=== PATIENT | male | born 1935 | race Caucasian/White ===

== ENCOUNTER 2022-11-15 06:59 | Inpatient (IN) ==
[2022-11-15 07:50] LABS: Mucus,Urine Occasional /LPF (Occasional); Urine Appearance Clear (Clear); Urine Color Yellow (Yellow); Urine pH 6.5 (4.5-8.0)
[2022-11-15 07:51] LABS: Bilirubin,Urine Negative (Negative); Blood, Urine Trace mg/dL (Negative); Glucose,Urine (UA) Negative (Negative); Ketones,Urine Negative (Negative); Nitrite,Urine Negative (Negative); Protein,Urine Negative (Negative); Urine Urobilinogen 0.2 eU/dL (<2.0)
[2022-11-15 07:59] LABS: Basophils % 0.2 % (0.0-0.8); Eosinophils % 0.3 % (0.00-10.9); Hematocrit 37.3 VOL% (42.0-52.0); Immature Granulocytes % 0.4 %; Immature Granulocytes Absolute 0.04 #; Lymphocytes # 0.5 10*3/uL (1.4-4.0); Lymphocytes % 4.7 % (21.2-54.2); Mean Corpuscular HGB Conc 32.2 GM/DL (32-36); Mean Corpuscular Volume 93.3 FL (87-102); Mean Platelet Volume 10.7 FL (9.6-12.0); Monocytes # 0.8 10*3/uL (0.11-0.8); Monocytes % 7.2 % (1.7-12.7); Neutrophils % 87.2 % (38.7-73.9); Platelet Count 161 T/CUMM (130-400); Red Cell Distribution Width 13.7 % (9.3-17.3); White Blood Count 10.44 T/CUMM (4-12)
[2022-11-15] MEDS ORDERED: PIPERACILLIN/TAZOBACTAM 3,375 MG in SODIUM CHLORIDE 0.9% 100 ML IV STA (08:04)
[2022-11-15] MEDS ORDERED: ALBUTEROL/IPRATROPIUM 3 ML NEB RESP TX PRN (08:05)
[2022-11-15] MEDS ORDERED: ONDANSETRON 4 MG/2 ML VIAL IV PRN (08:05)
[2022-11-15] MEDS ORDERED: hydrALAZINE 20 MG/1 ML VIAL IV PRN (08:05)
[2022-11-15] MEDS ORDERED: PROMETHAZINE 25 MG/1 ML VIAL IM PRN (08:05)
[2022-11-15] MEDS ORDERED: guaiFENesin/DM ER 600-30 MG TABLET PO PRN (08:05)
[2022-11-15] MEDS ORDERED: MORPHINE 2 MG/1 ML SYRINGE IV PRN (08:05)
[2022-11-15] MEDS ORDERED: NICOTINE 21 MG/24 HR PATCH TRANSDERM PRN (08:05)
[2022-11-15] MEDS ORDERED: ZALEPLON 5 MG CAPSULE PO PRN (08:05)
[2022-11-15] MEDS ORDERED: diphenhydrAMINE CAP 25 MG CAPSULE PO PRN (08:05)
[2022-11-15 08:16] LABS: Albumin 3.9 G/DL (3.4-5.0); Bilirubin,Total 0.6 MG/DL (0.20-1.00); Calcium 9.3 MG/DL (8.5-10.1); Osmolality,Calculated 280.7 MOS/KG (273-304); Potassium 5.3 MMOL/L (3.5-5.1); Total Protein 7.4 G/DL (6.4-8.2)
[2022-11-15 08:21] LABS: Eosinophils 1 % (0-10); Lymphocytes 3 % (20-55); Platelet Estimate Adequate; Total Cells Counted 100
[2022-11-15] MEDS ORDERED: FUROSEMIDE 40 MG/4 ML VIAL IV STA (10:21)
[2022-11-15] MEDS: PANTOPRAZOLE 40 MG TABLET PO SCH (10:25)
[2022-11-15] MEDS: DOCUSATE SODIUM 100 MG CAPSULE PO SCH ×2 (10:25→20:52)
[2022-11-15] MEDS: HEPARIN 5,000 UNIT/1 ML VIAL SUBCUT SCH ×2 (10:51→20:55)
[2022-11-15] MEDS ORDERED: FUROSEMIDE 40 MG/4 ML VIAL IV ONE (14:06)
[2022-11-15] MEDS: carvediloL 6.25 MG TABLET PO SCH ×2 (15:30→20:51)
[2022-11-15] MEDS: INSULIN LISPRO 100 UNIT/ML SUBCUT SCH ×2 (15:33→20:52)
[2022-11-15] MEDS: ACETAMINOPHEN 325 MG TABLET PO PRN ×2 (15:35→20:52)
[2022-11-15] MEDS: ATORVASTATIN 40 MG TABLET PO SCH (20:52)
[2022-11-15] MEDS: TAMSULOSIN 0.4 MG CAPSULE PO SCH (20:52)
[2022-11-15] MEDS: MEMANTINE 10 MG TABLET PO SCH (20:52)
[2022-11-16 04:54] LABS: Basophils % 0.3 % (0.0-0.8); Hematocrit 34.7 VOL% (42.0-52.0); Hemoglobin 11.4 GM/DL (14.0-18.0); Immature Granulocytes % 0.3 %; Immature Granulocytes Absolute 0.02 #; Lymphocytes # 0.8 10*3/uL (1.4-4.0); Lymphocytes % 10.5 % (21.2-54.2); Mean Corpuscular HGB Conc 32.9 GM/DL (32-36); Mean Platelet Volume 10.6 FL (9.6-12.0); Monocytes # 0.9 10*3/uL (0.11-0.8); Monocytes % 12.5 % (1.7-12.7); Neutrophils % 76.4 % (38.7-73.9); Platelet Count 163 T/CUMM (130-400); Red Blood Count 3.73 MC/CUMM (3.8-5.5); Red Cell Distribution Width 14.1 % (9.3-17.3); White Blood Count 7.35 T/CUMM (4-12)
[2022-11-16 05:21] LABS: Calcium 9.2 MG/DL (8.5-10.1); Osmolality,Calculated 281.7 MOS/KG (273-304); Potassium 4.4 MMOL/L (3.5-5.1)
[2022-11-16] MEDS: INSULIN LISPRO 100 UNIT/ML SUBCUT SCH ×4 (08:09→21:35)
[2022-11-16] MEDS ORDERED: lisinopriL 10 MG TABLET PO SCH (09:00)
[2022-11-16] MEDS: carvediloL 6.25 MG TABLET PO SCH ×2 (09:58→21:34)
[2022-11-16] MEDS: SODIUM CHLORIDE 0.9% 1,000 ML IV SCH ×2 (09:58→23:49)
[2022-11-16] MEDS: ASPIRIN EC 81 MG TABLET PO SCH (09:58)
[2022-11-16] MEDS: DONEPEZIL 10 MG TABLET PO SCH (09:58)
[2022-11-16] MEDS: PANTOPRAZOLE 40 MG TABLET PO SCH (09:58)
[2022-11-16] MEDS: HEPARIN 5,000 UNIT/1 ML VIAL SUBCUT SCH ×2 (09:59→21:34)
[2022-11-16] MEDS: DOCUSATE SODIUM 100 MG CAPSULE PO SCH ×2 (09:59→21:34)
[2022-11-16] MEDS: TAMSULOSIN 0.4 MG CAPSULE PO SCH ×2 (09:59→21:34)
[2022-11-16] MEDS: MEMANTINE 10 MG TABLET PO SCH ×2 (10:03→21:35)
[2022-11-16] MEDS ORDERED: NITROGLYCERIN SL 0.4 MG TABLET SL PRN (10:31)
[2022-11-16] MEDS: ACETAMINOPHEN 325 MG TABLET PO PRN (21:34)
[2022-11-16] MEDS: ATORVASTATIN 40 MG TABLET PO SCH (21:35)
[2022-11-16] MEDS: levETIRAcetam 500 MG TABLET PO SCH (21:35)
[2022-11-17] MEDS: SODIUM CHLORIDE 0.9% 1,000 ML IV SCH ×2 (03:30→13:18)
[2022-11-17] MEDS: ACETAMINOPHEN 650 MG SUPP RECTAL PRN ×2 (05:15→09:49)
[2022-11-17 05:32] LABS: Basophils % 0.2 % (0.0-0.8); Hemoglobin 12.3 GM/DL (14.0-18.0); Immature Granulocytes % 0.4 %; Immature Granulocytes Absolute 0.05 #; Lymphocytes # 1.2 10*3/uL (1.4-4.0); Lymphocytes % 10.4 % (21.2-54.2); Mean Corpuscular HGB Conc 31.5 GM/DL (32-36); Mean Corpuscular Volume 95.4 FL (87-102); Mean Platelet Volume 10.4 FL (9.6-12.0); Monocytes # 0.9 10*3/uL (0.11-0.8); Monocytes % 7.6 % (1.7-12.7); Neutrophils % 81.4 % (38.7-73.9); Platelet Count 175 T/CUMM (130-400); Red Blood Count 4.09 MC/CUMM (3.8-5.5); Red Cell Distribution Width 14.4 % (9.3-17.3); White Blood Count 11.34 T/CUMM (4-12)
[2022-11-17 05:56] LABS: Calcium 8.9 MG/DL (8.5-10.1); Osmolality,Calculated 283.7 MOS/KG (273-304); Potassium 4.3 MMOL/L (3.5-5.1)
[2022-11-17 07:07] LABS: Risk Ratio 2.96; Thyroid Stimulating Hormone 0.672 uIU/ml (0.358-3.74); VLDL Cholesterol 43.8 MG/DL
[2022-11-17] MEDS: INSULIN LISPRO 100 UNIT/ML SUBCUT SCH ×4 (09:50→22:44)
[2022-11-17] MEDS: HEPARIN 5,000 UNIT/1 ML VIAL SUBCUT SCH ×2 (09:51→22:55)
[2022-11-17] MEDS: carvediloL 6.25 MG TABLET PO SCH ×2 (10:08→22:58)
[2022-11-17] MEDS: DOCUSATE SODIUM 100 MG CAPSULE PO SCH ×2 (10:08→23:02)
[2022-11-17] MEDS: DONEPEZIL 10 MG TABLET PO SCH (10:08)
[2022-11-17] MEDS: TAMSULOSIN 0.4 MG CAPSULE PO SCH ×2 (10:08→22:58)
[2022-11-17] MEDS: ASPIRIN EC 81 MG TABLET PO SCH (10:08)
[2022-11-17] MEDS: MEMANTINE 10 MG TABLET PO SCH ×2 (10:09→22:58)
[2022-11-17] MEDS: CHOLECALCIFEROL 1,000 UNIT TABLET PO SCH (10:09)
[2022-11-17] MEDS: ZINC SULFATE 220 MG CAPSULE PO SCH (10:09)
[2022-11-17] MEDS: levETIRAcetam 500 MG TABLET PO SCH (10:09)
[2022-11-17] MEDS: PANTOPRAZOLE 40 MG TABLET PO SCH (10:09)
[2022-11-17] MEDS ORDERED: KETOROLAC 30 MG/1 ML VIAL IV PRN (11:12)
[2022-11-17 12:53] LABS: PT Patient Result 10.9 SECS (10.1-12.1)
[2022-11-17] MEDS ORDERED: FUROSEMIDE 20 MG/2 ML VIAL IV ONE (14:00)
[2022-11-17] MEDS ORDERED: AZITHROMYCIN INJ 500 MG in SODIUM CHLORIDE 0.9% 250 ML IV ONE (17:00)
[2022-11-17] MEDS: cefTRIAXone 1,000 MG in SODIUM CHLORIDE 0.9% 100 ML IV SCH (19:07)
[2022-11-17] MEDS: DEXAMETHASONE 4 MG/1 ML VIAL IV SCH (19:07)
[2022-11-17] MEDS: ASCORBIC ACID 500 MG TABLET PO SCH (23:02)
[2022-11-17] MEDS: ATORVASTATIN 40 MG TABLET PO SCH (23:02)
[2022-11-18 05:40] LABS: Basophils % 0.1 % (0.0-0.8); Hematocrit 33.5 VOL% (42.0-52.0); Hemoglobin 10.8 GM/DL (14.0-18.0); Immature Granulocytes % 0.3 %; Immature Granulocytes Absolute 0.02 #; Lymphocytes # 0.9 10*3/uL (1.4-4.0); Lymphocytes % 11.9 % (21.2-54.2); Mean Corpuscular HGB Conc 32.2 GM/DL (32-36); Mean Corpuscular Volume 93.1 FL (87-102); Mean Platelet Volume 10.3 FL (9.6-12.0); Monocytes # 0.5 10*3/uL (0.11-0.8); Monocytes % 5.8 % (1.7-12.7); Neutrophils % 81.9 % (38.7-73.9); Platelet Count 158 T/CUMM (130-400); Red Cell Distribution Width 14.1 % (9.3-17.3); White Blood Count 7.79 T/CUMM (4-12)
[2022-11-18 05:58] LABS: Calcium 8.3 MG/DL (8.5-10.1); Potassium 4.4 MMOL/L (3.5-5.1)
[2022-11-18] MEDS: CHOLECALCIFEROL 1,000 UNIT TABLET PO SCH (09:25)
[2022-11-18] MEDS: AZITHROMYCIN 250 MG TABLET PO SCH (09:25)
[2022-11-18] MEDS: TAMSULOSIN 0.4 MG CAPSULE PO SCH ×2 (09:25→22:33)
[2022-11-18] MEDS: ASPIRIN EC 81 MG TABLET PO SCH (09:25)
[2022-11-18] MEDS: DOCUSATE SODIUM 100 MG CAPSULE PO SCH ×2 (09:25→22:32)
[2022-11-18] MEDS: DONEPEZIL 10 MG TABLET PO SCH (09:25)
[2022-11-18] MEDS: ZINC SULFATE 220 MG CAPSULE PO SCH (09:25)
[2022-11-18] MEDS: ASCORBIC ACID 500 MG TABLET PO SCH ×2 (09:25→22:33)
[2022-11-18] MEDS: MEMANTINE 10 MG TABLET PO SCH ×2 (09:25→22:33)
[2022-11-18] MEDS: DEXAMETHASONE 4 MG/1 ML VIAL IV SCH (09:26)
[2022-11-18] MEDS: carvediloL 6.25 MG TABLET PO SCH ×2 (09:26→22:33)
[2022-11-18] MEDS: PANTOPRAZOLE 40 MG TABLET PO SCH (09:26)
[2022-11-18] MEDS: INSULIN LISPRO 100 UNIT/ML SUBCUT SCH ×4 (09:27→22:33)
[2022-11-18] MEDS: HEPARIN 5,000 UNIT/1 ML VIAL SUBCUT SCH ×2 (09:27→22:33)
[2022-11-18] MEDS: cefTRIAXone 1,000 MG in SODIUM CHLORIDE 0.9% 100 ML IV SCH (17:42)
[2022-11-18] MEDS: ATORVASTATIN 40 MG TABLET PO SCH (22:33)
[2022-11-19] MEDS: SODIUM CHLORIDE 0.9% 1,000 ML IV SCH ×4 (04:01→11:01)
[2022-11-19 06:17] LABS: Hematocrit 32.8 VOL% (42.0-52.0); Hemoglobin 10.7 GM/DL (14.0-18.0); Immature Granulocytes % 0.2 %; Immature Granulocytes Absolute 0.02 #; Lymphocytes % 11.3 % (21.2-54.2); Mean Corpuscular HGB Conc 32.6 GM/DL (32-36); Mean Corpuscular Volume 92.9 FL (87-102); Mean Platelet Volume 10.8 FL (9.6-12.0); Monocytes # 0.6 10*3/uL (0.11-0.8); Monocytes % 6.4 % (1.7-12.7); Neutrophils % 82.1 % (38.7-73.9); Platelet Count 170 T/CUMM (130-400); Red Blood Count 3.53 MC/CUMM (3.8-5.5); Red Cell Distribution Width 13.8 % (9.3-17.3); White Blood Count 8.74 T/CUMM (4-12)
[2022-11-19 06:45] LABS: Calcium 8.4 MG/DL (8.5-10.1); Osmolality,Calculated 292.4 MOS/KG (273-304); Potassium 4.1 MMOL/L (3.5-5.1)
[2022-11-19] MEDS: INSULIN LISPRO 100 UNIT/ML SUBCUT SCH ×3 (10:40→17:18)
[2022-11-19] MEDS: DEXAMETHASONE 4 MG/1 ML VIAL IV SCH (10:41)
[2022-11-19] MEDS: ASPIRIN EC 81 MG TABLET PO SCH (10:41)
[2022-11-19] MEDS: DONEPEZIL 10 MG TABLET PO SCH (10:41)
[2022-11-19] MEDS: DOCUSATE SODIUM 100 MG CAPSULE PO SCH ×2 (10:41→22:10)
[2022-11-19] MEDS: MEMANTINE 10 MG TABLET PO SCH ×2 (10:42→22:10)
[2022-11-19] MEDS: ASCORBIC ACID 500 MG TABLET PO SCH ×2 (10:42→22:10)
[2022-11-19] MEDS: PANTOPRAZOLE 40 MG TABLET PO SCH (10:42)
[2022-11-19] MEDS: HEPARIN 5,000 UNIT/1 ML VIAL SUBCUT SCH ×2 (10:42→22:10)
[2022-11-19] MEDS: ZINC SULFATE 220 MG CAPSULE PO SCH (10:42)
[2022-11-19] MEDS: TAMSULOSIN 0.4 MG CAPSULE PO SCH ×2 (10:42→22:10)
[2022-11-19] MEDS: CHOLECALCIFEROL 1,000 UNIT TABLET PO SCH (10:42)
[2022-11-19] MEDS: AZITHROMYCIN 250 MG TABLET PO SCH (10:43)
[2022-11-19] MEDS: carvediloL 3.125 MG TABLET PO SCH ×2 (11:02→22:11)
[2022-11-19] MEDS: ZINC OXIDE PASTE 113 GM TUBE TOP SCH (17:29)
[2022-11-19] MEDS: cefTRIAXone 1,000 MG in SODIUM CHLORIDE 0.9% 100 ML IV SCH (17:44)
[2022-11-19] MEDS: ATORVASTATIN 40 MG TABLET PO SCH (22:10)
[2022-11-20] MEDS: INSULIN LISPRO 100 UNIT/ML SUBCUT SCH ×5 (00:01→22:21)
[2022-11-20] MEDS: SODIUM CHLORIDE 0.9% 1,000 ML IV SCH ×2 (01:52→22:23)
[2022-11-20] MEDS: ZINC OXIDE PASTE 113 GM TUBE TOP SCH ×3 (01:53→22:20)
[2022-11-20 06:12] LABS: Hemoglobin 10.2 GM/DL (14.0-18.0); Immature Granulocytes % 0.6 %; Immature Granulocytes Absolute 0.06 #; Lymphocytes % 10.3 % (21.2-54.2); Mean Corpuscular HGB Conc 31.9 GM/DL (32-36); Mean Corpuscular Volume 94.1 FL (87-102); Mean Platelet Volume 10.3 FL (9.6-12.0); Monocytes # 0.6 10*3/uL (0.11-0.8); Monocytes % 6.2 % (1.7-12.7); Neutrophils % 82.9 % (38.7-73.9); Platelet Count 162 T/CUMM (130-400); Red Cell Distribution Width 13.7 % (9.3-17.3); White Blood Count 9.58 T/CUMM (4-12)
[2022-11-20 06:28] LABS: Calcium 8.1 MG/DL (8.5-10.1); Osmolality,Calculated 291.3 MOS/KG (273-304); Potassium 4.2 MMOL/L (3.5-5.1)
[2022-11-20] MEDS: DEXAMETHASONE 4 MG/1 ML VIAL IV SCH (09:23)
[2022-11-20] MEDS: HEPARIN 5,000 UNIT/1 ML VIAL SUBCUT SCH ×2 (09:23→22:15)
[2022-11-20] MEDS: DOCUSATE SODIUM 100 MG CAPSULE PO SCH ×2 (09:24→22:14)
[2022-11-20] MEDS: PANTOPRAZOLE 40 MG TABLET PO SCH (09:24)
[2022-11-20] MEDS: AZITHROMYCIN 250 MG TABLET PO SCH (09:24)
[2022-11-20] MEDS: DONEPEZIL 10 MG TABLET PO SCH (09:24)
[2022-11-20] MEDS: CHOLECALCIFEROL 1,000 UNIT TABLET PO SCH (09:24)
[2022-11-20] MEDS: carvediloL 3.125 MG TABLET PO SCH ×2 (09:24→22:14)
[2022-11-20] MEDS: ZINC SULFATE 220 MG CAPSULE PO SCH (09:24)
[2022-11-20] MEDS: ASPIRIN EC 81 MG TABLET PO SCH (09:24)
[2022-11-20] MEDS: ASCORBIC ACID 500 MG TABLET PO SCH ×2 (09:24→22:14)
[2022-11-20] MEDS: TAMSULOSIN 0.4 MG CAPSULE PO SCH ×2 (09:24→22:14)
[2022-11-20] MEDS: MEMANTINE 10 MG TABLET PO SCH ×2 (09:24→22:14)
[2022-11-20] MEDS: cefTRIAXone 1,000 MG in SODIUM CHLORIDE 0.9% 100 ML IV SCH (16:49)
[2022-11-20] MEDS: ATORVASTATIN 40 MG TABLET PO SCH (22:14)
[2022-11-21 06:01] LABS: Hematocrit 31.6 VOL% (42.0-52.0); Hemoglobin 10.3 GM/DL (14.0-18.0); Immature Granulocytes % 1.4 %; Immature Granulocytes Absolute 0.13 #; Lymphocytes # 1.6 10*3/uL (1.4-4.0); Lymphocytes % 16.9 % (21.2-54.2); Mean Corpuscular HGB Conc 32.6 GM/DL (32-36); Mean Corpuscular Volume 93.2 FL (87-102); Mean Platelet Volume 10.9 FL (9.6-12.0); Monocytes # 0.7 10*3/uL (0.11-0.8); Monocytes % 7.5 % (1.7-12.7); Neutrophils % 74.2 % (38.7-73.9); Platelet Count 174 T/CUMM (130-400); Red Blood Count 3.39 MC/CUMM (3.8-5.5); Red Cell Distribution Width 13.5 % (9.3-17.3); White Blood Count 9.15 T/CUMM (4-12)
[2022-11-21 06:20] LABS: Calcium 8.3 MG/DL (8.5-10.1); Osmolality,Calculated 290.1 MOS/KG (273-304); Potassium 3.8 MMOL/L (3.5-5.1)
[2022-11-21] MEDS: INSULIN LISPRO 100 UNIT/ML SUBCUT SCH ×4 (09:15→20:15)
[2022-11-21] MEDS: TAMSULOSIN 0.4 MG CAPSULE PO SCH ×2 (09:20→20:15)
[2022-11-21] MEDS: ASPIRIN EC 81 MG TABLET PO SCH (09:20)
[2022-11-21] MEDS: ZINC OXIDE PASTE 113 GM TUBE TOP SCH ×2 (09:20→20:15)
[2022-11-21] MEDS: DONEPEZIL 10 MG TABLET PO SCH (09:20)
[2022-11-21] MEDS: DOCUSATE SODIUM 100 MG CAPSULE PO SCH ×2 (09:20→20:15)
[2022-11-21] MEDS: DEXAMETHASONE 4 MG/1 ML VIAL IV SCH (09:20)
[2022-11-21] MEDS: CHOLECALCIFEROL 1,000 UNIT TABLET PO SCH ×2 (09:21→09:42)
[2022-11-21] MEDS: MEMANTINE 10 MG TABLET PO SCH ×2 (09:21→20:15)
[2022-11-21] MEDS: PANTOPRAZOLE 40 MG TABLET PO SCH (09:21)
[2022-11-21] MEDS: ASCORBIC ACID 500 MG TABLET PO SCH ×2 (09:21→20:15)
[2022-11-21] MEDS: ZINC SULFATE 220 MG CAPSULE PO SCH (09:21)
[2022-11-21] MEDS: AZITHROMYCIN 250 MG TABLET PO SCH (09:22)
[2022-11-21] MEDS: HEPARIN 5,000 UNIT/1 ML VIAL SUBCUT SCH ×2 (09:22→20:15)
[2022-11-21] MEDS: levETIRAcetam 500 MG TABLET PO SCH ×2 (11:28→20:15)
[2022-11-21] MEDS: cefTRIAXone 1,000 MG in SODIUM CHLORIDE 0.9% 100 ML IV SCH (16:42)
[2022-11-21] MEDS: SODIUM CHLORIDE 0.9% 1,000 ML IV SCH (20:15)
[2022-11-21] MEDS: ATORVASTATIN 40 MG TABLET PO SCH (20:15)
[2022-11-22 07:02] LABS: Basophils % 0.1 % (0.0-0.8); Eosinophils % 0.3 % (0.00-10.9); Hemoglobin 9.9 GM/DL (14.0-18.0); Immature Granulocytes % 2.2 %; Lymphocytes % 21.4 % (21.2-54.2); Mean Corpuscular Volume 93.2 FL (87-102); Monocytes # 0.8 10*3/uL (0.11-0.8); Monocytes % 8.5 % (1.7-12.7); Neutrophils % 67.5 % (38.7-73.9); Platelet Count 179 T/CUMM (130-400); Red Blood Count 3.22 MC/CUMM (3.8-5.5); Red Cell Distribution Width 13.5 % (9.3-17.3)
[2022-11-22 07:27] LABS: Calcium 8.3 MG/DL (8.5-10.1); Osmolality,Calculated 288.8 MOS/KG (273-304); Potassium 3.7 MMOL/L (3.5-5.1)
[2022-11-22] MEDS: INSULIN LISPRO 100 UNIT/ML SUBCUT SCH ×4 (08:02→20:20)
[2022-11-22] MEDS: HEPARIN 5,000 UNIT/1 ML VIAL SUBCUT SCH ×2 (08:03→20:20)
[2022-11-22] MEDS: ZINC SULFATE 220 MG CAPSULE PO SCH (08:04)
[2022-11-22] MEDS: levETIRAcetam 500 MG TABLET PO SCH ×2 (08:04→20:20)
[2022-11-22] MEDS: ASCORBIC ACID 500 MG TABLET PO SCH ×2 (08:04→20:20)
[2022-11-22] MEDS: TAMSULOSIN 0.4 MG CAPSULE PO SCH ×2 (08:04→20:20)
[2022-11-22] MEDS: CHOLECALCIFEROL 1,000 UNIT TABLET PO SCH (08:04)
[2022-11-22] MEDS: DOCUSATE SODIUM 100 MG CAPSULE PO SCH ×2 (08:05→20:20)
[2022-11-22] MEDS: ASPIRIN EC 81 MG TABLET PO SCH (08:05)
[2022-11-22] MEDS: DONEPEZIL 10 MG TABLET PO SCH (08:05)
[2022-11-22] MEDS: MEMANTINE 10 MG TABLET PO SCH ×2 (08:05→20:20)
[2022-11-22] MEDS: PANTOPRAZOLE 40 MG TABLET PO SCH (08:05)
[2022-11-22] MEDS: DEXAMETHASONE 4 MG/1 ML VIAL IV SCH (08:09)
[2022-11-22] MEDS: ZINC OXIDE PASTE 113 GM TUBE TOP SCH ×2 (08:10→20:20)
[2022-11-22] MEDS: SODIUM CHLORIDE 0.9% 1,000 ML IV SCH (17:23)
[2022-11-22] MEDS: cefTRIAXone 1,000 MG in SODIUM CHLORIDE 0.9% 100 ML IV SCH (17:25)
[2022-11-22] MEDS: ATORVASTATIN 40 MG TABLET PO SCH (20:20)
[2022-11-23 05:34] LABS: Basophils % 0.1 % (0.0-0.8); Eosinophils # 0.1 10*3/uL (0.0-0.87); Eosinophils % 0.8 % (0.00-10.9); Hematocrit 32.6 VOL% (42.0-52.0); Hemoglobin 10.6 GM/DL (14.0-18.0); Immature Granulocytes % 3.6 %; Immature Granulocytes Absolute 0.36 #; Lymphocytes # 2.2 10*3/uL (1.4-4.0); Lymphocytes % 22.7 % (21.2-54.2); Mean Corpuscular HGB Conc 32.5 GM/DL (32-36); Mean Corpuscular Volume 92.4 FL (87-102); Mean Platelet Volume 10.8 FL (9.6-12.0); Monocytes # 0.8 10*3/uL (0.11-0.8); Neutrophils % 64.8 % (38.7-73.9); Platelet Count 196 T/CUMM (130-400); Red Blood Count 3.53 MC/CUMM (3.8-5.5); Red Cell Distribution Width 13.5 % (9.3-17.3); White Blood Count 9.88 T/CUMM (4-12)
[2022-11-23 06:01] LABS: Calcium 8.1 MG/DL (8.5-10.1); Osmolality,Calculated 287.8 MOS/KG (273-304); Potassium 3.6 MMOL/L (3.5-5.1)
[2022-11-23] MEDS: INSULIN LISPRO 100 UNIT/ML SUBCUT SCH ×4 (08:45→22:17)
[2022-11-23] MEDS: DOCUSATE SODIUM 100 MG CAPSULE PO SCH ×2 (08:47→22:06)
[2022-11-23] MEDS: ASPIRIN EC 81 MG TABLET PO SCH (08:47)
[2022-11-23] MEDS: DEXAMETHASONE 4 MG/1 ML VIAL IV SCH (08:47)
[2022-11-23] MEDS: DONEPEZIL 10 MG TABLET PO SCH (08:47)
[2022-11-23] MEDS: HEPARIN 5,000 UNIT/1 ML VIAL SUBCUT SCH ×2 (08:48→22:09)
[2022-11-23] MEDS: MEMANTINE 10 MG TABLET PO SCH ×2 (08:48→22:07)
[2022-11-23] MEDS: levETIRAcetam 500 MG TABLET PO SCH ×2 (08:48→22:06)
[2022-11-23] MEDS: ZINC OXIDE PASTE 113 GM TUBE TOP SCH ×2 (08:48→22:08)
[2022-11-23] MEDS: TAMSULOSIN 0.4 MG CAPSULE PO SCH ×2 (08:48→22:07)
[2022-11-23] MEDS: PANTOPRAZOLE 40 MG TABLET PO SCH (08:48)
[2022-11-23] MEDS: ASCORBIC ACID 500 MG TABLET PO SCH ×2 (08:49→22:07)
[2022-11-23] MEDS: ZINC SULFATE 220 MG CAPSULE PO SCH (08:49)
[2022-11-23] MEDS: CHOLECALCIFEROL 1,000 UNIT TABLET PO SCH (08:49)
[2022-11-23] MEDS ORDERED: ceFAZolin 1,000 MG VIAL IRRIG ONE (09:00)
[2022-11-23] MEDS ORDERED: LIDOCAINE 1%/EPI INJ 20 ML VIAL ONE (09:05)
[2022-11-23] MEDS ORDERED: ceFAZolin 1,000 MG VIAL ONE ×2 (09:05→09:08)
[2022-11-23] MEDS ORDERED: HEPARIN/NACL 0.9% 2 UNITS/ML 1,000 UNIT/500 ML BAG IV ONE (09:05)
[2022-11-23] MEDS ORDERED: fentaNYL 100 MCG/2 ML VIAL ONE (10:13)
[2022-11-23] MEDS ORDERED: MIDAZOLAM 2 MG/2 ML VIAL ONE (10:13)
[2022-11-23] MEDS ORDERED: diphenhydrAMINE 50 MG/1 ML VIAL ONE (10:29)
[2022-11-23] MEDS ORDERED: TISSUE ADHESIVE 1 EACH APPLICATOR TOP ONE (10:59)
[2022-11-23] MEDS: SODIUM CHLORIDE 0.9% 1,000 ML IV SCH (16:56)
[2022-11-23] MEDS: cefTRIAXone 1,000 MG in SODIUM CHLORIDE 0.9% 100 ML IV SCH (16:58)
[2022-11-23] MEDS: ATORVASTATIN 40 MG TABLET PO SCH (22:08)
[2022-11-24 05:51] LABS: Basophils % 0.2 % (0.0-0.8); Eosinophils # 0.1 10*3/uL (0.0-0.87); Eosinophils % 0.6 % (0.00-10.9); Hematocrit 35.4 VOL% (42.0-52.0); Hemoglobin 11.5 GM/DL (14.0-18.0); Immature Granulocytes Absolute 0.34 #; Lymphocytes # 2.1 10*3/uL (1.4-4.0); Lymphocytes % 18.6 % (21.2-54.2); Mean Corpuscular HGB Conc 32.5 GM/DL (32-36); Mean Corpuscular Volume 93.2 FL (87-102); Mean Platelet Volume 11.2 FL (9.6-12.0); Monocytes # 1.1 10*3/uL (0.11-0.8); Monocytes % 9.5 % (1.7-12.7); NRBC # 0.02 10*3/uL; Neutrophils % 68.1 % (38.7-73.9); Platelet Count 227 T/CUMM (130-400); Red Cell Distribution Width 13.7 % (9.3-17.3); White Blood Count 11.21 T/CUMM (4-12)
[2022-11-24 06:07] LABS: Calcium 8.7 MG/DL (8.5-10.1); Osmolality,Calculated 281.3 MOS/KG (273-304); Potassium 3.5 MMOL/L (3.5-5.1)
[2022-11-24] MEDS: INSULIN LISPRO 100 UNIT/ML SUBCUT SCH ×2 (08:08→13:55)
[2022-11-24] MEDS: levETIRAcetam 500 MG TABLET PO SCH (10:27)
[2022-11-24] MEDS: DOCUSATE SODIUM 100 MG CAPSULE PO SCH (10:27)
[2022-11-24] MEDS: ZINC SULFATE 220 MG CAPSULE PO SCH (10:27)
[2022-11-24] MEDS: TAMSULOSIN 0.4 MG CAPSULE PO SCH (10:27)
[2022-11-24] MEDS: CHOLECALCIFEROL 1,000 UNIT TABLET PO SCH (10:27)
[2022-11-24] MEDS: MEMANTINE 10 MG TABLET PO SCH (10:27)
[2022-11-24] MEDS: PANTOPRAZOLE 40 MG TABLET PO SCH (10:27)
[2022-11-24] MEDS: DONEPEZIL 10 MG TABLET PO SCH (10:27)
[2022-11-24] MEDS: ASPIRIN EC 81 MG TABLET PO SCH (10:27)
[2022-11-24] MEDS: ASCORBIC ACID 500 MG TABLET PO SCH (10:27)
[2022-11-24] MEDS: HEPARIN 5,000 UNIT/1 ML VIAL SUBCUT SCH (10:27)
[2022-11-24] MEDS: SODIUM CHLORIDE 0.9% 1,000 ML IV SCH (11:06)
[2022-11-24] MEDS: ZINC OXIDE PASTE 113 GM TUBE TOP SCH (11:07)
[2022-11-24] MEDS: DEXAMETHASONE 4 MG/1 ML VIAL IV SCH (11:07)
[2022-11-24 12:07] VITALS: BP 115/42
== END 2022-11-24 14:51 | disposition home or self-care (01) | DRG 40 ==
LOC: N.ED 06:59 → SUATTDRO 08:05 → N.EDINP 08:05 → N.2E 10:20
PROVIDERS: ADMIT Internal Medicine; ATTEND Internal Medicine Nephrology